=== PATIENT | female | born 2000 ===

== ENCOUNTER 2019-04-09 16:38 | Emergency (ER) | payer OTHER ==
--- NOTE | 2019-04-09 17:30 | UC ---
Back Pain HPI - HPI Summary HPI Summary: Pt taking a summer program at [employer]. Pt was involved in an activity last week that involved a rope around her mid back. Pt states she jerked and hurt her back, R>L mid. No paresthsia, no weakness, no bruising. Pt tates has been taking care of it - stretch, rest, not exerices. Pt states today she was working in the [employer] - leaning over to work with sheep - pt states she felt a pull in her back and wanted to get checked. No changes bowel/bladder. no analgesia taken. no hematuria pt with current menses meds reviewed - History of Current Complaint Chief Complaint: UCBackPain Stated Complaint: BACK PAIN Time Seen by Provider: 04/09/19 17:30 Hx Obtained From: Patient ?: No Onset/Duration: Sudden Onset Pain Intensity: 6 - Allergies/Home Medications Allergies/Adverse Reactions: Allergies Allergy/AdvReac Type Severity Reaction Status Date / Time No Known Allergies Allergy Verified 04/09/19 16:53 Home Medications: Home Medications NK [No Home Medications Reported] 04/09/19 [History Confirmed 04/09/19] PMH/Surg Hx/FS Hx/Imm Hx Previously Healthy: Yes - Surgical History Surgical History: None - Family History Known Family History: Positive: Non-Contributory - Social History Lives: With Family Alcohol Use: Rare Substance Use Type: None Smoking Status (MU): Never Smoked Tobacco Review of Systems All Other Systems Reviewed And Are Negative: Yes Constitutional: Positive: Negative Skin: Positive: Negative Respiratory: Positive: Negative Cardiovascular: Positive: Negative Musculoskeletal: Positive: Other: - back pain Is Patient Immunocompromised?: No Physical Exam - Summary Physical Exam Summary: Vital Signs Reviewed: Yes A+Ox3, no distress Eyes: Conjunctiva Clear, DENINS. EOM intact and full ENT: Hearing grossly normal TM x 2 clear, mmoist, uvula midline, no exudate, no erythema Neck: Positive: Supple Respiratory: Positive: No respiratory distress, No accessory muscle use + CTA throughout no w/r Cardiovascular: RRR nl s1, s2 no m/r CBT <2 sec abd soft + BS nt/nd no guarding, no distension Musculoskeletal Exam: COH x 4 without difficulty 5/5 strength x 4 no spinous process pain with direct palp No pain c/t/l/s + paraspinal tenderness with direct palp - no ecchymosis, hematoma Neurological: Positive: Alert, + sensation throughout Psychological: Positive: Normal Response To Family Skin: Positive: no rash, no ecchymosis Triage Information Reviewed: Yes Vital Signs: Initial Vital Signs Temp 98.1 F 04/09/19 16:49 Pulse 65 04/09/19 16:49 Resp 18 04/09/19 16:49 BP 104/63 04/09/19 16:49 Pulse Ox 100 04/09/19 16:49 Diagnostics - Radiology No standard instances Radiology Interpretation Completed By: ED Physician - no fx Back Pain Course/Dx - Course Course Of Treatment: Pt presents to for eval of back pain. Pt had a rope around her in a team builiding exercises and was "jerked" pt state was improved until returned to her program at [employer] today - was working wtih sheep, bendig and hand incresedp ain VS pt with paraspinal low thoracic pain CSM intact x 4 urine + blood - with menses will check imaging analgesia suhail for comfort lifting restrictions heat [facility] read imaging tonight - Differential Dx/Diagnosis Provider Diagnosis: Muscle strain Discharge - Sign-Out/Discharge Documenting (check all that apply): Patient Departure All imaging exams completed and their final reports reviewed: Yes - Discharge Plan Condition: Stable Disposition: HOME Patient Education Materials: Muscle Strain (ED), Muscle Spasm (ED) Referrals: [facility] [Provider Group] Additional Instructions: Okay to alternate ibuprofen (Advil, Motrin) 400mg and Tylenol (Acetminophen) 650mg every 3 hours for pain or fever. Take with food. Do NOT take for more than 4-5 days. -Apply moist heat to your back for 20 minutes at a time, 2-3 times a day. (hot shower, heating pad) Once your muscles are warm, slow gentle stretching exercises are important -wear suhail wrap over your muscles for comfort and support - Contact [facility] tomorrow to schedule a follow-up appointment. -If you pain is uncontrolled, you fell short of breath, you have blood in your urine or any other concerns it is recommended you go to the emergency department for further evaluation and treatment - Billing Disposition and Condition Condition: STABLE Disposition: Home - Attestation Statements Provider Attestation: Patient Name: SANAZ LYNN Medical Record#: [id number] Ordering Physician: Rani Stein MD Acct.#: [id number] : 2000 Age: 18 Sex: F Location: [facility] Exam Date: 04/09/191827 ADM Status: DEP ER Order Information: THORACIC SPINE 2 VWS Accession Number: [id number] CPT: 53074 INDICATION: Pain right paraspinal thoracic region. COMPARISON: There are no prior studies available for comparison. TECHNIQUE: AP and lateral films of the dorsal spine were obtained. FINDINGS: There is a mild dorsal scoliosis convex toward the right side. The vertebra are otherwise in normal alignment. No fracture is seen. Disc spaces appear maintained. IMPRESSION: MILD SCOLIOSIS. R0 Preliminary Imaging Read R0 <Electronically signed by Edgard Longoria MD in OV> 04/10/19650 Dictated By: Edgard Longoria MD Dictated Date/Time: 04/10/19650 Transcribed Date/Time: 04/10/1950 Copy to: CC:Rani Stein MD; No Primary Care Phys,[facility] Imaging - [facility] Imaging - [facility] Imaging - [facility] [address] [address] ph ([phone]) ph ([phone]) ph ([phone]) This report is only to be considered final once signed by the Provider(s) as displayed in the "<Electronically Signed by >" field (s). Absence of a signature indicates the report is in a draft status and still needs to be finalized. In the event this document was created by someone other than the signing Provider, the individual initiating the document will be listed in the "Entered by:" or "Dictated by:" reyes. 1 of 1
[2019-04-09] MEDS ORDERED: Ibuprofen TAB* 400 MG PO ONE (18:27)
--- NOTE | 2019-04-10 13:14 | UC ---
- Progress Note Progress Note: Radiologist reading of thoracic spine x-ray from April 10, 2019 comes back as mild scoliosis. Provider discharge summary does not mention any fractures therefore there is no discrepancy. Course/Dx - Diagnoses Provider Diagnoses: Muscle strain Discharge - Sign-Out/Discharge Documenting (check all that apply): Patient Departure All imaging exams completed and their final reports reviewed: Yes - Discharge Plan Condition: Stable Disposition: HOME Patient Education Materials: Muscle Strain (ED), Muscle Spasm (ED) Referrals: [facility] [Provider Group] Additional Instructions: Okay to alternate ibuprofen (Advil, Motrin) 400mg and Tylenol (Acetminophen) 650mg every 3 hours for pain or fever. Take with food. Do NOT take for more than 4-5 days. -Apply moist heat to your back for 20 minutes at a time, 2-3 times a day. (hot shower, heating pad) Once your muscles are warm, slow gentle stretching exercises are important -wear suhail wrap over your muscles for comfort and support - Contact [facility] tomorrow to schedule a follow-up appointment. -If you pain is uncontrolled, you fell short of breath, you have blood in your urine or any other concerns it is recommended you go to the emergency department for further evaluation and treatment - Billing Disposition and Condition Condition: STABLE Disposition: Home
== END 2019-04-09 19:20 | disposition home or self-care (01) ==
LOC: UCEAST 16:38
DX: S29.012A Strain of muscle and tendon of back wall of thorax, initial encounter (principal); X58.XXXA Exposure to other specified factors, initial encounter; Y92.9 Unspecified place or not applicable
CPT/HCPCS: 72070; 81003; 84702; 99202; A9270-GY; G0463